=== PATIENT | female | born 1980 | race Caucasian/White ===

== ENCOUNTER 2021-04-27 15:43 | Day surgery (SDC) | payer BC ==
[~2021-04-27] VITALS: Ht 160 cm; Wt 65.0 kg
[2021-04-27 16:15] VITALS: BP 126/86
[2021-04-27] MEDS ORDERED: CHLORHEXIDINE 15 ML UDC ONE (16:17)
[2021-04-27 16:24] LABS: HCG UR SG 1.033 (1.003-1.030)
[2021-04-27] MEDS ORDERED: IBUP-1222 PO (16:36)
[2021-04-27] MEDS ORDERED: CLON0.5T PO (16:36)
[2021-04-27] MEDS ORDERED: MIDAZOLAM 1 MG/ML, 2ML ONE (16:57)
[2021-04-27] MEDS ORDERED: FENTANYL PF 100 MCG/2ML ONE ×2 (16:57→19:11)
[2021-04-27] MEDS ORDERED: ACETAMINOPHEN 325 MG TABLET PO PRN (17:00)
[2021-04-27] MEDS ORDERED: HYDROmorphone 1 MG/ML, 1ML INJ IVPush PRN (17:00)
[2021-04-27] MEDS ORDERED: MIDAZOLAM 1 MG/ML, 2ML IV PRN (17:00)
[2021-04-27] MEDS ORDERED: PROMETHAZINE 25 MG/ML, 1ML IVPush PRN (17:00)
[2021-04-27] MEDS ORDERED: MEPERIDINE/PF 25MG/0.5ML IVPush PRN (17:00)
[2021-04-27] MEDS ORDERED: OMNIPAQUE 350 MG/ML, 50 ML BOTTLE ONE (17:07)
[2021-04-27] MEDS ORDERED: LIDOCAINE-MPF 2% ,5ML ONE (18:01)
[2021-04-27] MEDS ORDERED: DEXAMETHASONE 4 MG/ML, 1ML ONE (18:01)
[2021-04-27] MEDS ORDERED: CEFAZOLIN 1,000 MG ONE (18:01)
[2021-04-27] MEDS ORDERED: PROPOFOL 10 MG/ML, 20ML ONE (18:01)
[2021-04-27] MEDS ORDERED: ONDANSETRON 2MG/ML, 2ML ONE (18:01)
[2021-04-27] MEDS ORDERED: KETOROLAC 30 MG/1 ML IV PRN (19:00)
[2021-04-27] MEDS ORDERED: ONDANSETRON 2MG/ML, 2ML IV PRN (19:00)
[2021-04-27] MEDS ORDERED: ACETAMINOPHEN 650 MG/20.3 ML UDC ONE (19:10)
[2021-04-27] MEDS ORDERED: OXYcodone 5 MG/5 ML ORAL.SOL UDC ONE ×2 (19:11→19:41)
[2021-04-27] MEDS: OXYcodone 5 MG/5 ML ORAL.SOL UDC PO PRN ×2 (19:22→19:42)
[2021-04-27] MEDS: FENTANYL PF 100 MCG/2ML IV PRN ×3 (19:23→19:40)
== END 2021-04-27 20:42 | disposition home or self-care (01) ==
LOC: OR 15:43
PROVIDERS: ATTEND Urology
DX: N20.0 Calculus of kidney (principal); F17.210 Nicotine dependence, cigarettes, uncomplicated; Z20.822 Contact with and (suspected) exposure to COVID-19; Z88.0 Allergy status to penicillin; Z88.1 Allergy status to other antibiotic agents
CPT/HCPCS: 52353; 81025; 82360; 87635; 88300; C1769; J0690; J1100; J2250; J2405; J2704; J3010; Q9967